=== PATIENT | female | born 1995 | race African-American/Black ===

== ENCOUNTER 2021-03-03 00:42 | Emergency (ER) | payer MEDICAID ==
[~2021-03-03] VITALS: Ht 157.5 cm; Wt 50.0 kg
[2021-03-03 01:21] VITALS: BP 101/58
[2021-03-03] MEDS ORDERED: LIDOCAINE HCL/PF 1% 10 MG/ML 5ML VIAL INFIL ONE (02:45)
[2021-03-03] MEDS ORDERED: BACITRACIN ZINC OINT UDPKT TOP ONE (02:45)
[2021-03-03] MEDS ORDERED: ACETAMINOPHEN 500MG TABLET PO ONE (02:45)
[2021-03-03] MEDS ORDERED: ACET-2708 MT (03:08)
== END 2021-03-03 06:16 | disposition home or self-care (01) ==
LOC: ER 00:42
DX: S01.511A Laceration without foreign body of lip, initial encounter (principal); W01.0XXA Fall on same level from slipping, tripping and stumbling without subsequent striking against object, initial encounter; Y93.89 Activity, other specified; Y92.89 Other specified places as the place of occurrence of the external cause; Y99.8 Other external cause status; J45.909 Unspecified asthma, uncomplicated; Z88.0 Allergy status to penicillin
CPT/HCPCS: 12011; 81025; 99283; A4217; J3490; Z7610